=== PATIENT | male | born 1955 | race Caucasian/White ===

== ENCOUNTER 2024-08-06 09:09 | Outpatient (RCR) | payer MEDICARE, SELFPAY | END 2024-08-28 10:57 | disposition home or self-care (01) | LOC: PT 09:09 | PROVIDERS: PCP Family Medicine; Visit Provider Psychiatry & Neurology Neurology | DX: R20.0 Anesthesia of skin (principal); R20.2 Paresthesia of skin; M50.30 Other cervical disc degeneration, unspecified cervical region; M51.369 Other intervertebral disc degeneration, lumbar region without mention of lumbar back pain or lower extremity pain | CPT/HCPCS: 97010; 97012; 97110; 97140; 97161; G0283 ==

== ENCOUNTER 2024-09-10 06:35 | Outpatient (OUT) | payer MEDICARE, SELFPAY ==
--- NOTE | 2024-09-10 06:41 | MR_ITS ---
The [address] [address] Patient Name: LUIS RAMIREZ MRN: [id number] date: 1955 Sex: M Assigned Patient Location: MRI Current Patient Location: Accession/Order Number: [id number] Exam Date: 09/10/2024 07:00 Report Date: 09/11/2024 09:18 At the request of: MURPHY LEIJA Procedure: MR lumbar spine wo con EXAM: MR lumbar spine wo con REASON FOR EXAM: Degeneration of intervertebral disc of lumbar region. TECHNIQUE: Multiplanar, multisequence imaging of the lumbar spine was performed without contrast COMPARISON: None. FINDINGS: 5 nonrib-bearing lumbar vertebrae. Normal lumbar lordosis without listhesis. Vertebral body heights are maintained. The spine is minimally scoliotic. The bone marrow signal is diffusely heterogeneous, favoring red marrow reconversion. No acute or aggressive osseous abnormality identified. 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 Limited evaluation of the abdominopelvic viscera is without acute or suspicious abnormality. Simple appearing right renal cyst identified. L1-L2: No focal disc herniation identified. No spinal canal or neural foraminal stenosis. L2-L3: Minimal broad-based disc bulge with flattening of the ventral thecal sac. No spinal canal stenosis. There is more focal broad-based left foraminal lateral protrusion. Moderate left and mild right neural foraminal stenosis secondary to disc osteophyte complex and facet arthropathy. L3-L4: Broad-based disc bulge with mild spinal canal and lateral recess stenosis. Moderate bilateral neural foraminal stenosis secondary to disc osteophyte complex and facet arthropathy. L4-L5: Diffuse broad-based disc bulge with severe spinal canal lateral recess stenosis. Severe bilateral neural foraminal stenosis secondary to disc osteophyte complex and facet arthropathy. L5-S1: Broad-based disc bulge/posterior disc osteophyte complex results in mild spinal canal and lateral recess stenosis. Moderate bilateral neural foraminal stenosis, right greater than left secondary to disc osteophyte complex and facet arthropathy. MR/MR lumbar spine wo con IMPRESSION: 1. Moderate to severe multilevel degenerative disc disease and facet arthropathy, most significant at the L4-L5 level as described above. Electronically authenticated by: LIZZY PAIGE Date: 09/11/2024 09:18
== END 2024-09-10 06:36 | disposition home or self-care (01) ==
LOC: MRI 06:35
PROVIDERS: PCP Family Medicine; Visit Provider Psychiatry & Neurology Neurology
DX: M51.369 Other intervertebral disc degeneration, lumbar region without mention of lumbar back pain or lower extremity pain (principal)
CPT/HCPCS: 72148